=== PATIENT | female | born 1950 | race Caucasian/White ===

== ENCOUNTER → 2018-04-06 | Outpatient (CLI) | payer MEDICARE, OTHER | LOC: M SLEEP HO 11:26 | DX: G47.30 Sleep apnea, unspecified (principal) | CPT/HCPCS: G0399 ==

== ENCOUNTER → 2018-04-13 | Outpatient (CLI) | payer MEDICARE, OTHER | LOC: M SLEEP 19:13 | DX: G47.33 Obstructive sleep apnea (adult) (pediatric) (principal) | CPT/HCPCS: 95811 ==

== ENCOUNTER → 2019-05-05 | Outpatient (CLI) | payer MEDICARE, OTHER ==
[~2019-05-05] MED LIST: PROHANCE 279.3MG/ML 5ML VIAL (A9576) As Ordered ONE
--- NOTE | 2019-05-05 15:03 | REP ---
MRI orbits without and with IV gadolinium: History: Homonymous hemianopsia bilateral left side. Technique: Axial and coronal and sagittal imaging planes utilized. T1 and T2-weighted scans and postcontrast scans are included. The gadolinium enhancement dose is 9.7 ml of intravenous ProHance. MRI findings: There is no evidence of extraconal or intraconal orbital mass. The ocular bulbs are unremarkable bilaterally. Optic nerves appear intact and symmetric. Extraocular muscles show no evidence of hypertrophy. Orbital margins appear intact. There is no MR evidence of significant paranasal sinus disease. The optic chiasm and suprasellar cistern is unremarkable. Postcontrast imaging shows no abnormal contrast enhancement. Impression: Unremarkable orbital MRI study. Electronically Signed by Raul Christiansen MD 05/05/2019 04:19 P
--- NOTE | 2019-05-05 15:04 | REP ---
MRI brain without and with IV contrast: History: Homonymous hemianopsia bilateral left side. Headache. Technique: Axial and sagittal imaging planes are utilized for T1 and T2-weighted scans. Sequences include spin-echo, fast spin echo, FLAIR, and diffusion weighted sequences. Gadolinium enhancement dose is 9.7 mL of intravenous ProHance. MRI findings: No bony calvarial lesion is seen. Craniocervical junction and upper cervical cord are normal in appearance. There is no evidence of significant paranasal sinus disease. No intraorbital abnormality is appreciated. Diffusion weighted scans demonstrate a pattern of restricted diffusion in the right occipital lobe and right posterior temporal lobe consistent with recent infarction. There is some T2 hyperintensity on FLAIR and turbo spin echo T2-weighted scans in the same distribution. There is contrast enhancement in a gyral pattern in this distribution consistent with luxury perfusion a recent infarct. There is no evidence of intracranial mass. No other area of restricted diffusion is appreciated. There are small vessel atherosclerotic changes in the periventricular white matter of the frontal lobes and occipital and parietal lobes bilaterally. No evidence of hemorrhage. 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 There is no evidence of intracranial hemorrhage. Electronically Signed by Raul Christiansen MD 05/05/2019 04:21 P
== END ==
LOC: M RAD 09:40
PROVIDERS: ATTEND Ophthalmology
DX: H53.462 Homonymous bilateral field defects, left side (principal)
CPT/HCPCS: 70543; 70553; A9576

== ENCOUNTER → 2019-05-09 | Outpatient (REF) | payer MEDICARE, OTHER ==
[2019-05-09 13:50] LABS: BASO # 0.1 10^3/uL (0.0-0.2); BASO % 0.7 % (0.0-1.0); EOS # 0.1 10^3/uL (0.0-0.5); EOS % 0.7 % (0.0-3.0); HEMATOCRIT 44.6 % (36.0-47.0); HEMOGLOBIN 14.5 g/dl (12.0-15.5); LYMPH # 2.1 10^3/uL (1.5-5.0); LYMPH % 24.6 % (24.0-44.0); MEAN CORPUSCULAR HEMOGLOBIN 30.2 pg (27.0-33.0); MEAN CORPUSCULAR HGB CONC 32.5 g/dl (32.0-36.5); MEAN CORPUSCULAR VOLUME 92.9 fl (80.0-96.0); MONO # 0.7 10^3/uL (0.0-0.8); MONO % 7.6 % (0.0-5.0); NEUTROPHILS # 5.6 10^3/uL (1.5-8.5); NEUTROPHILS % 65.9 % (36.0-66.0); PLATELET COUNT, AUTOMATED 347 10^3/uL (150-450); WHITE BLOOD COUNT 8.5 10^3/uL (4.0-10.0)
[2019-05-09 14:08] LABS: HEMOGLOBIN A1c 7.1 %
[2019-05-09 14:19] LABS: ALT/SGPT 26 U/L (12-78); BLOOD UREA NITROGEN 20 MG/DL (7-18); CALCIUM LEVEL 9.7 MG/DL (8.8-10.2); CARBON DIOXIDE LEVEL 31 MEQ/L (21-32); CHLORIDE LEVEL 99 MEQ/L (98-107); CREATININE FOR GFR 0.89 MG/DL (0.55-1.30); GLOMERULAR FILTRATION RATE > 60.0 (>45); GLUCOSE, FASTING 117 MG/DL (70-100); POTASSIUM SERUM 4.2 MEQ/L (3.5-5.1); SODIUM LEVEL 137 MEQ/L (136-145)
[2019-05-09 14:20] LABS: ALBUMIN 4.2 GM/DL (3.2-5.2); BILIRUBIN,TOTAL 0.5 MG/DL (0.2-1.0); CHOLESTEROL LEVEL 303 MG/DL (<200); CHOLESTEROL RISK RATIO 5.315 (<5); HDL CHOLESTEROL 57 MG/DL (>40); LDL CHOLESTEROL 203 MG/DL (<100); NON-HDL-C 246 MG/DL; RHEUMATOID FACTOR QUANT < 10.0 IU/ML (<15.0); TOTAL PROTEIN 8.1 GM/DL (6.4-8.2); TRIGLYCERIDES LEVEL 214 MG/DL (<150)
[2019-05-09 14:26] LABS: ERYTHROCYTE SEDIMENTATION RATE 29 mm/hr (0-30)
[2019-05-14 00:13] LABS: ANCA-ATYPICAL <1:20 titer (Neg:<1:20); ANTI DS-DNA AB <1:10 titer (.); ANTI THROMBIN 3 FUNCT ACTIVITY 120 % (75-135); ANTINUCLEAR ANTIBODIES DIRECT Negative (Negative); CARDIOLIPIN IGA ANTIBODY <9 APL U/mL (0-11); CARDIOLIPIN IGG ANTIBODY <9 GPL U/mL (0-14); CARDIOLIPIN IGM ANTIBODY <9 MPL U/mL (0-12); CYTOPLASMIC NEUTROP AB ANCA-C <1:20 titer (Neg:<1:20); PERINUCLEAR AB ANCA-P <1:20 titer (Neg:<1:20); PROTEIN C FUNCTIONAL ACTIVITY 178 % (73-180); PROTEIN S FUNCTIONAL ACTIVITY 131 % (63-140); SJOGREN'S ANTI SS-A <0.2 AI (0.0-0.9); SJOGREN'S ANTI SS-B <0.2 AI (0.0-0.9)
== END ==
LOC: M LABNEURO 10:45
PROVIDERS: ATTEND Psychiatry & Neurology Neurology
DX: I63.9 Cerebral infarction, unspecified (principal)

== ENCOUNTER → 2019-05-25 | Outpatient (CLI) | payer MEDICARE, OTHER ==
[~2019-05-25] MED LIST changes: +ISOVUE-370 76% 100ML VIAL (Q9967) As Ordered ONE; -PROHANCE 279.3MG/ML 5ML VIAL (A9576) As Ordered ONE
--- NOTE | 2019-05-25 13:53 | REP ---
Extracranial CTA: 05/25/2019. Indication: Carotid stenosis. Technique: Axial images of the extracranial carotid and vertebral arteries were obtained following IV administration of 75 ml Isovue 370. Findings: There is moderate irregular atherosclerotic stenosis of the most proximal right ICA just beyond the bifurcation with the stenosis approaching 60%. There is no hemodynamically significant left ICA stenosis by NASCET criteria. The vertebral arteries are patent bilaterally. The visualized lungs are clear. Impression: No hemodynamically significant extracranial ICA stenosis by NASCET criteria. Moderate irregular atherosclerotic narrowing of the proximal right ICA. Electronically Signed by Gelacio Rose DO 05/25/2019 01:44 P
== END ==
LOC: M RAD 12:47
PROVIDERS: ATTEND Surgery Vascular Surgery
DX: I65.22 Occlusion and stenosis of left carotid artery (principal)
CPT/HCPCS: 70498; Q9967

== ENCOUNTER → 2021-08-13 | Outpatient (CLI) | payer MEDICARE, OTHER | LOC: M PLAIMG 13:25 | PROVIDERS: ATTEND Physician Assistant | DX: M16.11 Unilateral primary osteoarthritis, right hip (principal); M25.451 Effusion, right hip ==

== ENCOUNTER → 2024-01-18 | Outpatient (CLI) | payer MEDICARE, OTHER ==
[~2024-01-18] MED LIST changes: -ISOVUE-370 76% 100ML VIAL (Q9967) As Ordered ONE; +ISOVUE-370 76% 100ML VIAL As Ordered ONE
== END ==
LOC: M RAD 09:28
PROVIDERS: ATTEND Surgery Vascular Surgery
DX: I65.21 Occlusion and stenosis of right carotid artery (principal)
CPT/HCPCS: 70450; 70496; 70498; Q9967